=== PATIENT | female | born 1990 | race Caucasian/White ===

== ENCOUNTER 2016-03-05 09:30 | Inpatient (IN) | payer OTHER ==
[~2016-03-05] VITALS: Ht 152.4 cm; Wt 75.3 kg
--- NOTE | ~2016-03-05 | WRIGHTHP ---
[place], [place] PATIENT HISTORY AND PHYSICAL EXAM NAME: LEEROY ELIZALDE [facility] #: [id number] UNIT #: [id number] ROOM: 403 DOCTOR: LITZY HURLEY DO BIRTHDATE: [birth year] DOS: 03/05/2016 PRIMARY CARE PHYSICIAN: None. The patient was seen and evaluated with the resident on 03/05/2016. Please see the resident's note for further details. ASSESSMENT: 1. Acute right chest/flank pain associated with a cough. 2. Right upper quadrant abdominal pain. 3. Nausea and vomiting. 4. Leukocytosis. 5. Tobacco abuse. PLAN: Continue IV fluids and supportive care. A CTA of the chest will be ordered to rule out PE. A HIDA scan will be ordered for tomorrow to evaluate gallbladder disease. Continue Toradol for pain. LITZY HURLEY DO CM:HISPHYS:PATIENT HISTORY AND PHYSICAL EXAMINATION 56 04 LITZY HURLEY DO 03/05/162203 interface
[~2016-03-05 09:30] MED LIST: AMOXIL500 MG PO; CEFDINIR300 MG PO; CIPROFLOXACIN500 MG PO; FLOMAX0.4 MG PO; HYDROCODONE BIT1 T11 PO; IBU800 MG PO; IBUPROFEN800 MG PO; MACROBID100 M1 PO; MEDROL DOSEPAK4 MG PO; MOTRIN800 MG PO; Motrin,Rufen800 MG PO; NAPROSYN500 MG PO; NORCO 325 MG-51 TAB PO; NORCO 5-325 TA1 EACH PO; Orphenadrine C100 MG PO; PENICILLIN VK500 MG PO; PERCOCET 325 MG1 TA2 PO; PROTONIX40 MG PO; ROBAXIN500 MG PO; TRAMADOL HCL50 MG PO; ULTRAM50 MG PO; VICODIN 5/500 505 MG PO; ZOFRAN ODT4 MG SL
[2016-03-05 09:39] VITALS: BP 151/90
[2016-03-05 10:14] LABS: BASO # 0.1 10*3/uL (0.0-0.1); BASO % 0.4 % (0.0-1.0); EOS # 0.1 10*3/uL (0.0-0.4); EOS % 0.4 % (1.0-4.0); HEMATOCRIT 42.5 % (37.0-47.0); HEMOGLOBIN 14.8 g/dl (12.0-16.0); IG # 0.1 10*3/uL (0.0-0.1); LYMPH # 2.7 10*3/uL (1.3-4.4); LYMPH % 18.8 % (27.0-41.0); MEAN CELL VOLUME 90.6 fl (81.0-99.0); MEAN CORPUSCULAR HGB 31.6 pg (27.0-31.0); MEAN CORPUSCULAR HGB CONC 34.8 g/dl (33.0-37.0); MEAN PLATELET VOLUME 10.8 fl (9.6-12.3); MONO # 0.8 10*3/uL (0.1-1.0); MONO % 5.5 % (3.0-9.0); NEUT # 10.7 10*3/uL (2.3-7.9); NEUT % 74.4 % (47.0-73.0); PLATELET COUNT AUTOMATED 245 10*3/uL (130-400); RED BLOOD COUNT 4.69 10*6/uL (4.10-5.10); RED CELL DISTRI WIDTH 12.2 % (0-14.5); WHITE BLOOD COUNT 14.4 10*3/uL (4.8-10.8)
[2016-03-05 10:21] LABS: INTERNATIONAL NORM RATIO 0.9 (2.0-3.5)
[2016-03-05 10:30] LABS: ALBUMIN 3.8 gm/dl (3.1-4.5); ALKALINE PHOSPHATASE 98 U/L (45-117); BILIRUBIN, TOTAL 0.3 mg/dl (0.2-1.0); BUN 11 mg/dl (7-24); CARBON DIOXIDE 26 mmol/L (21-32); CHLORIDE 102 mmol/L (98-107); EST GLOM FILT AFRICAN AMERICAN > 60 ml/min; GLUCOSE 95 mg/dL (65-99); MAGNESIUM 2.1 mg/dL (1.5-2.1); POTASSIUM 3.6 mmol/L (3.5-5.1); SGOT/AST 13 IU/L (3-35); SGPT/ALT 25 U/L (12-78); SODIUM 139 mmol/L (136-145); TOTAL PROTEIN 7.4 gm/dL (6.4-8.2)
[2016-03-05 10:31] LABS: TROPONIN I < 0.015 ng/ml (<0.5)
[2016-03-05 10:35] LABS: BILIRUBIN NEGATIVE (NEGATIVE); BLOOD 1+ (NEGATIVE); CLARITY CLEAR (CLEAR); COLOR YELLOW (YELLOW); GLUCOSE NEGATIVE (NEGATIVE); KETONE NEGATIVE (NEGATIVE); LEUKO ESTERASE NEGATIVE (NEGATIVE); NITRITE NEGATIVE (NEGATIVE); PROTEIN NEGATIVE (NEGATIVE); SPECIFIC GRAVITY <= 1.005 (1.005-1.030); UROBILINOGEN 0.2 E.U./dl (0.2-1.0)
[2016-03-05 10:46] LABS: BACTERIA TRACE; URINE REFLEX COMMENT YES (NO)
[2016-03-05 12:17] VITALS: BP 144/72
[2016-03-05 14:00] VITALS: BP 103/50
[2016-03-05 16:00] VITALS: BP 106/60
[2016-03-05 20:00] VITALS: BP 120/68
[2016-03-06] VITALS: BP 100/61
[2016-03-06 06:25] LABS: BASO % 0.4 % (0.0-1.0); EOS # 0.1 10*3/uL (0.0-0.4); HEMATOCRIT 38.1 % (37.0-47.0); IG # 0.1 10*3/uL (0.0-0.1); LYMPH # 2.1 10*3/uL (1.3-4.4); LYMPH % 19.7 % (27.0-41.0); MEAN CELL VOLUME 92.7 fl (81.0-99.0); MEAN CORPUSCULAR HGB 31.6 pg (27.0-31.0); MEAN CORPUSCULAR HGB CONC 34.1 g/dl (33.0-37.0); MEAN PLATELET VOLUME 11.4 fl (9.6-12.3); MONO # 0.6 10*3/uL (0.1-1.0); MONO % 5.2 % (3.0-9.0); NEUT # 7.8 10*3/uL (2.3-7.9); NEUT % 73.1 % (47.0-73.0); PLATELET COUNT AUTOMATED 197 10*3/uL (130-400); RED BLOOD COUNT 4.11 10*6/uL (4.10-5.10); RED CELL DISTRI WIDTH 12.3 % (0-14.5); WHITE BLOOD COUNT 10.7 10*3/uL (4.8-10.8)
[2016-03-06 06:58] LABS: HEMOGLOBIN A1c 5.1 % (4.8-5.6)
[2016-03-06 07:08] LABS: ALBUMIN 2.8 gm/dl (3.1-4.5); ALKALINE PHOSPHATASE 72 U/L (45-117); BILIRUBIN, TOTAL 0.3 mg/dl (0.2-1.0); BUN 6 mg/dl (7-24); CARBON DIOXIDE 25 mmol/L (21-32); CHLORIDE 108 mmol/L (98-107); CHOLESTEROL 151 mg/dL (<200); EST GLOM FILT AFRICAN AMERICAN > 60 ml/min; FOLIC ACID 10.21 ng/mL (>5.38); FREE T4 0.91 ng/dl (0.76-1.46); GLUCOSE 86 mg/dL (65-99); HDL CHOLESTEROL 45 mg/dl (40-60); LDL CHOLESTEROL 85 mg/dL (9-159); MAGNESIUM 1.9 mg/dL (1.5-2.1); POTASSIUM 3.7 mmol/L (3.5-5.1); SGOT/AST 15 IU/L (3-35); SGPT/ALT 22 U/L (12-78); SODIUM 142 mmol/L (136-145); TOTAL PROTEIN 5.8 gm/dL (6.4-8.2); TRIGLYCERIDES 103 mg/dl (<150); VLDL CHOLESTEROL 21 mg/dL (6-40)
[2016-03-06 08:00] VITALS: BP 122/78
[2016-03-06 12:00] VITALS: BP 123/86
[2016-03-06] MEDS ORDERED: BENZONATATE100 M1 PO (14:33)
[2016-03-06] MEDS ORDERED: IBU800 M1 PO (14:40)
== END 2016-03-06 15:35 | disposition home or self-care (01) | DRG 391 ==
LOC: ED 09:30 → EDHOLD 11:53 → 4E 11:53
PROVIDERS: Internal Medicine
DX: K52.9 Noninfective gastroenteritis and colitis, unspecified (principal); E43 Unspecified severe protein-calorie malnutrition; D72.829 Elevated white blood cell count, unspecified; F17.200 Nicotine dependence, unspecified, uncomplicated; M94.0 Chondrocostal junction syndrome [Tietze]; Z80.3 Family history of malignant neoplasm of breast; Z82.49 Family history of ischemic heart disease and other diseases of the circulatory system; Z79.899 Other long term (current) drug therapy

== ENCOUNTER 2017-02-03 17:16 | Emergency (ER) | payer OTHER ==
[~2017-02-03] VITALS: Wt 64.0 kg
[~2017-02-03 17:16] MED LIST changes: +BENZONATATE100 M1 PO; +IBU800 M1 PO
[2017-02-03] MEDS ORDERED: ADDERALL XR 3030 MG PO (17:18)
== END 2017-02-03 19:05 | disposition home or self-care (01) ==
LOC: ED 17:16
DX: S50.01XA Contusion of right elbow, initial encounter (principal); S63.501A Unspecified sprain of right wrist, initial encounter; F17.200 Nicotine dependence, unspecified, uncomplicated; F10.10 Alcohol abuse, uncomplicated; Z91.040 Latex allergy status; Z88.8 Allergy status to other drugs, medicaments and biological substances; Z79.899 Other long term (current) drug therapy; W01.198A Fall on same level from slipping, tripping and stumbling with subsequent striking against other object, initial encounter; Y93.89 Activity, other specified; Y92.89 Other specified places as the place of occurrence of the external cause; Y99.0 Civilian activity done for income or pay

== ENCOUNTER 2017-02-11 23:49 | Emergency (ER) | payer OTHER ==
[~2017-02-11] VITALS: Ht 152.4 cm; Wt 64.0 kg
[~2017-02-11 23:49] MED LIST changes: +ADDERALL XR 3030 MG PO
[2017-02-12] MEDS ORDERED: IBU800 M1 PO (00:10)
== END 2017-02-12 00:44 | disposition home or self-care (01) ==
LOC: ED 23:49
DX: S61.411A Laceration without foreign body of right hand, initial encounter (principal); F17.200 Nicotine dependence, unspecified, uncomplicated; Z98.890 Other specified postprocedural states; Z91.040 Latex allergy status; Z79.899 Other long term (current) drug therapy; W45.8XXA Other foreign body or object entering through skin, initial encounter; Y93.89 Activity, other specified; Y92.090 Kitchen in other non-institutional residence as the place of occurrence of the external cause; Y99.9 Unspecified external cause status

== ENCOUNTER → 2017-03-06 | Outpatient (CLI) | payer OTHER | END | disposition home or self-care (01) | LOC: RAD 11:37 | DX: S03.00XA Dislocation of jaw, unspecified side, initial encounter (principal); X58.XXXA Exposure to other specified factors, initial encounter; Y93.89 Activity, other specified; Y92.89 Other specified places as the place of occurrence of the external cause; Y99.8 Other external cause status ==

== ENCOUNTER → 2018-08-31 | Outpatient (CLI) | payer OTHER | END | disposition home or self-care (01) | LOC: RAD 13:02 | DX: M25.475 Effusion, left foot (principal); W19.XXXA Unspecified fall, initial encounter; Y93.89 Activity, other specified; Y92.89 Other specified places as the place of occurrence of the external cause; Y99.8 Other external cause status ==

== ENCOUNTER → 2023-07-30 | Outpatient (CLI) | payer OTHER ==
[2023-07-30 18:30] LABS: URINE AMPHETAMINES Positive (1000ng/ml); URINE BARBITURATES Negative (200ng/ml); URINE BENZODIAZEPINES Negative (200ng/ml); URINE CANNABINOIDS (THC) Negative (50ng/ml); URINE COCAINE Negative (300ng/ml); URINE METHADONE Negative (300ng/ml); URINE OPIATES Negative (300ng/ml); URINE PHENCYCLIDINE Negative (25ng/ml)
== END | disposition home or self-care (01) ==
LOC: LAB 17:36
PROVIDERS: ATTEND Psychiatry & Neurology Psychiatry
DX: R82.5 Elevated urine levels of drugs, medicaments and biological substances (principal)

== ENCOUNTER 2024-03-06 15:01 | Emergency (ER) | payer OTHER ==
[~2024-03-06] VITALS: Ht 152.4 cm; Wt 72.6 kg
[2024-03-06] MEDS ORDERED: Ketorolac Tromethamine 15 MG/ML VIAL IV ONE (15:30)
[2024-03-06] MEDS ORDERED: Ondansetron Hydrochloride 4 MG/2 ML VIAL IV ONE (15:30)
[2024-03-06] MEDS ORDERED: MORPHINE Sulfate 2 MG/ML SYR IV ONE ×2 (15:30→18:00)
[2024-03-06] MEDS ORDERED: SODIUM CHLORIDE 0.9% 1,000 ML IV ONE (15:30)
[2024-03-06 15:45] LABS: BASO % 0.3 % (0.0-1.0); EOS # 0.1 10*3/uL (0.0-0.4); HEMATOCRIT 42.5 % (37.0-47.0); MEAN CELL VOLUME 90.8 fl (81.0-99.0); MEAN CORPUSCULAR HGB 31.4 pg (27.0-31.0); MEAN CORPUSCULAR HGB CONC 34.6 g/dl (33.0-37.0); MEAN PLATELET VOLUME 9.8 fl (9.6-12.3); MONO # 0.7 10*3/uL (0.1-1.0); MONO % 5.5 % (3.0-9.0); NEUT # 9.6 10*3/uL (2.3-7.9); NEUT % 79.8 % (47.0-73.0); PLATELET COUNT AUTOMATED 303 10*3/uL (130-400); RED BLOOD COUNT 4.68 10*6/uL (4.10-5.10); RED CELL DISTRI WIDTH 12.6 % (0-14.5)
[2024-03-06 15:45] LABS: BILIRUBIN Negative (Negative); BLOOD 2+ (Negative); CLARITY Cloudy (Clear); COLOR Yellow (Yellow); GLUCOSE Negative (Negative); KETONE Trace (Negative); LEUKO ESTERASE Trace (Negative); NITRITE Negative (Negative); SPECIFIC GRAVITY >= 1.030 (1.001-1.030)
[2024-03-06 15:57] LABS: BACTERIA 3+; MUCOUS 2+
[2024-03-06 16:04] LABS: BUN 11 mg/dl (9-23); CHLORIDE 104 mmol/L (98-107); POTASSIUM 4.1 mmol/L (3.4-5.1)
[2024-03-06] MEDS ORDERED: FLOMAX0.4 MG PO (18:00)
[2024-03-06] MEDS ORDERED: PERCOCET 5-3251 EACH PO (18:00)
[2024-03-06] MEDS ORDERED: Ondansetron4 MG PO (18:00)
== END 2024-03-06 18:15 | disposition home or self-care (01) ==
LOC: ED 15:01
PROVIDERS: Emergency Medicine
DX: N20.0 Calculus of kidney (principal); F17.200 Nicotine dependence, unspecified, uncomplicated; Z91.048 Other nonmedicinal substance allergy status; Z91.040 Latex allergy status; Z79.899 Other long term (current) drug therapy; Z98.890 Other specified postprocedural states; Z87.442 Personal history of urinary calculi

== ENCOUNTER 2024-08-22 18:12 | Emergency (ER) | payer OTHER ==
[~2024-08-22] VITALS: Ht 152.4 cm; Wt 73.5 kg
[~2024-08-22 18:12] MED LIST changes: +Ondansetron4 MG PO; +PERCOCET 5-3251 EACH PO
[2024-08-22] MEDS ORDERED: Ondansetron Hydrochloride 4 MG/2 ML VIAL IV ONE (18:55)
[2024-08-22] MEDS ORDERED: SODIUM CHLORIDE 0.9% 1,000 ML IV ONE (18:55)
[2024-08-22 19:13] LABS: BASO # 0.1 10*3/uL (0.0-0.1); BASO % 0.4 % (0.0-1.0); EOS # 0.1 10*3/uL (0.0-0.4); EOS % 0.6 % (1.0-4.0); MEAN CELL VOLUME 91.6 fl (81.0-99.0); MEAN CORPUSCULAR HGB 31.3 pg (27.0-31.0); MEAN PLATELET VOLUME 10.1 fl (9.6-12.3); MONO # 0.9 10*3/uL (0.1-1.0); MONO % 5.7 % (3.0-9.0); NEUT # 10.3 10*3/uL (2.3-7.9); NEUT % 65.6 % (47.0-73.0); NUCLEATED RED BLOOD CELL 0.0 % (0.0-0.0); NUCLEATED RED BLOOD CELL 0.0 10*3/uL (0.0-0.0); PLATELET COUNT AUTOMATED 324 10*3/uL (130-400); RED CELL DISTRI WIDTH 12.4 % (0-14.5)
[2024-08-22 19:35] LABS: BUN 10 mg/dl (9-23); SGPT/ALT 15 U/L (5-49)
[2024-08-22 20:00] LABS: BILIRUBIN Negative (Negative); BLOOD Negative (Negative); CLARITY Clear (Clear); COLOR Yellow (Yellow); KETONE Negative (Negative); LEUKO ESTERASE Negative (Negative); NITRITE Negative (Negative); PH 6.5 (4.5-8.0); SPECIFIC GRAVITY 1.025 (1.001-1.030); UROBILINOGEN 1.0 E.U./dl (0.0-1.0)
[2024-08-22 20:11] LABS: BACTERIA 3+; CALCIUM OXALATE CRYSTALS Trace; MUCOUS 1+
[2024-08-22] MEDS ORDERED: Ondansetron4 MG PO (21:59)
[2024-08-22] MEDS ORDERED: REGLAN10 M1 PO (21:59)
[2024-08-22] MEDS ORDERED: Ondansetron 4 MG 2 TAB ED PACK PO SCH (22:00)
[2024-08-22] MEDS ORDERED: Metoclopramide Hydrochloride 10 MG/2 ML VIAL IV ONE (22:05)
[2024-08-22] MEDS ORDERED: diphenhydrAMINE hydrochloride 50 MG/ML VIAL IV ONE (22:05)
== END 2024-08-22 22:12 | disposition home or self-care (01) ==
LOC: ED 18:12
PROVIDERS: Emergency Medicine
DX: A08.4 Viral intestinal infection, unspecified (principal); Z87.442 Personal history of urinary calculi; Z87.42 Personal history of other diseases of the female genital tract; Z98.890 Other specified postprocedural states; Z91.048 Other nonmedicinal substance allergy status; Z91.040 Latex allergy status; Z79.899 Other long term (current) drug therapy; Z87.891 Personal history of nicotine dependence

== ENCOUNTER → 2024-11-10 | Outpatient (CLI) | payer OTHER ==
[~2024-11-10] MED LIST changes: +REGLAN10 M1 PO
== END | disposition home or self-care (01) ==
LOC: RAD 15:40
PROVIDERS: ATTEND Internal Medicine
DX: M25.561 Pain in right knee (principal)